=== PATIENT | female | born 1970 | race American Indian/Alaskan Native ===

== ENCOUNTER 2018-03-03 16:22 | Inpatient (IN) | payer BC ==
[2018-03-03 16:29] VITALS: BMI 26.6
--- NOTE | 2018-03-03 16:37 | ED PDOC ---
Arrival/HPI - General Chief Complaint: High Blood Pressure Time Seen by Provider: 03/03/18 16:23 Historian: Patient, EMS - History of Present Illness Time/Duration: Prior to Arrival Symptom Course: Unchanged Severity Level: Severe Activities at Onset: Rest Associated Symptoms (Text): 03/03/18 16:34 Patient reports that she was at work and became hot and diaphoretic and developed visual disturbance. She states that this happens when she becomes hypertensive. She went to a drug store and took her blood pressure and it was elevated at 260/130. The pharmacist called 911 and she was brought to the emergency department via ambulance. No headache dizziness or lightheadedness. No chest pain palpitations or dyspnea. No nausea or vomiting. There is a history of hypertension. Family/Social History - Physician Review Nursing Documentation Reviewed: Yes Family/Social History: Unknown Family HX Smoking Status: Light Smoker < 10 Cigarettes Daily Hx Alcohol Use: Yes Frequency of alcohol use: Few days per week Hx Substance Use: No Allergies/Home Meds Allergies/Adverse Reactions: Allergies No Known Allergies Allergy (Verified 03/03/18 16:29) Home Medications: Home Meds Medication Instructions Recorded Confirmed Atorvastatin [Lipitor] 10 mg PO DAILY 03/03/18 03/03/18 Valsartan [Diovan] 160 mg PO DAILY 03/03/18 03/03/18 Review of Systems - Physician Review All systems were reviewed & negative as marked: Yes - Review of Systems Constitutional: Normal. absent: Fatigue, Fevers Respiratory: Cough. absent: SOB, Sputum, Wheezing Cardiovascular: absent: Chest Pain, Palpitations, Syncope Gastrointestinal: absent: Abdominal Pain, Nausea, Vomiting Neurological: absent: Headache, Dizziness, Focal Weakness, Gait Changes Physical Exam Vital Signs Temp Pulse Resp BP Pulse Ox 03/03/18 18:01 61 16 185/95 H 100 03/03/18 16:50 65 237/128 H 03/03/18 16:32 97.6 F 64 18 237/128 H 100 Temperature: Afebrile Blood Pressure: Hypertensive Pulse: Regular Respiratory Rate: Normal Appearance: Positive for: Well-Appearing, Non-Toxic, Comfortable Pain Distress: None Mental Status: Positive for: Alert and Oriented X 3 - Systems Exam Head: Present: Atraumatic, Normocephalic Pupils: Present: PERRL Extroacular Muscles: Present: EOMI Conjunctiva: Present: Normal Mouth: Present: Moist Mucous Membranes Pharnyx: No: ERYTHEMA, EXUDATE, TONSILS ENLARGED Neck: Present: Normal Range of Motion Respiratory/Chest: Present: Clear to Auscultation, Good Air Exchange. No: Respiratory Distress, Accessory Muscle Use Cardiovascular: Present: Regular Rate and Rhythm, Normal S1, S2. No: Murmurs Abdomen: No: Tenderness, Distention, Peritoneal Signs, Rebound, Guarding Upper Extremity: Present: Normal Inspection. No: Cyanosis, Edema Lower Extremity: Present: Normal Inspection. No: Edema Neurological: Present: GCS=15, CN II-XII Intact, Speech Normal, Motor Func Grossly Intact, Normal Cerebellar Funct, Gait Normal Skin: Present: Warm, Dry, Normal Color. No: Rashes Psychiatric: Present: Alert, Oriented x 3, Normal Insight, Normal Concentration Medical Decision Making ED Course and Treatment: 03/03/18 16:52 EKG shows normal sinus rhythm rate approximately [address] or T-wave changes 03/03/18 18:17 Blood pressure is improved, although the patient still states she does not feel right. She will be kept on telemetry observation bed. - Lab Interpretations Lab Results: 03/03/18 16:45 03/03/18 16:45 Lab Results 03/03/18 16:45: Sodium 137, Potassium 3.5 L, Chloride 106, Carbon Dioxide 21, Anion Gap 13, BUN 19, Creatinine 0.6 L, Est GFR ( Amer) > 60, Est GFR ( Non-Af Amer) > 60, Random Glucose 89, Calcium 9.5, Total Bilirubin 0.2, AST 43 H , ALT 34, Alkaline Phosphatase 53, Lactate Dehydrogenase 627, Total Creatine Kinase 181, Troponin I < 0.01, Total Protein 7.8, Albumin 4.3, Globulin 3.5, Albumin/Globulin Ratio 1.2 03/03/18 16:45: WBC 12.2 H, RBC 4.10, Hgb 11.8 L, Hct 35.8 L, MCV 87.3, MCH 28.8 , MCHC 33.0, RDW 16.8 H, Plt Count 382, MPV 9.8, Gran % 55.8, Lymph % (Auto) 32.0, [place] % (Auto) 9.2 H, Eos % (Auto) 2.5, Baso % (Auto) 0.5, Gran # 6.82 H, Lymph # (Auto) 3.9 H, [place] # (Auto) 1.1 H, Eos # (Auto) 0.3, Baso # (Auto) 0.06 - RAD Interpretation Radiology Orders: 03/03/18 16:33 CHEST PORTABLE [RAD] Stat Chest 1 view shows no infiltrate effusion or cardiomegaly Clerk Checker: ED Physician - Medication Orders Current Medication Orders: Discontinued Medications Clonidine HCl (Catapres) 0.2 mg PO ONCE ONE Stop: 03/03/18 16:35 Last Admin: 03/03/18 16:50 Dose: 0.2 mg MAR Pulse and Blood Pressure Document 03/03/18 16:50 RR (Rec: 03/03/18 16:50 RR [id number]) Pulse Pulse Rate (60-90 beats/min) 65 Blood Pressure Blood Pressure (100/60-150/90 mm Hg) 237/128 Disposition/Present on Arrival - Present on Arrival Any Indicators Present on Arrival: No History of DVT/PE: No History of Uncontrolled Diabetes: No Urinary Catheter: No History of Decub. Ulcer: No - Disposition Have Diagnosis and Disposition been Completed?: Yes Diagnosis: Hypertension Disposition: HOSPITALIZED Disposition Time: 18:19 Patient Plan: Observation, Telemetry Condition: IMPROVED Forms: [employer] (Frisian)
--- NOTE | 2018-03-03 17:21 | RAD ---
HISTORY: HTN COMPARISON: No prior. FINDINGS: LUNGS: No active pulmonary disease. PLEURA: No significant pleural effusion identified, no pneumothorax apparent. CARDIOVASCULAR: Normal. OSSEOUS STRUCTURES: No significant abnormalities. VISUALIZED UPPER ABDOMEN: Normal. OTHER FINDINGS: None. IMPRESSION: No active disease.
[2018-03-03 17:24] LABS: BASO # 0.06 K/mm3 (0.0-2.0); BASO % 0.5 % (0.0-3.0); EOS # 0.3 (0.0-0.7); EOS % 2.5 % (1.5-5.0); GRAN # 6.82 (1.4-6.5); GRAN % 55.8 % (50.0-68.0); HEMOGLOBIN 11.8 g/dL (12.0-16.0); LYMPH # 3.9 (1.2-3.4); MEAN CELL VOLUME 87.3 fl (80.0-105.0); MEAN CORPUSCULAR HEMOGLOBIN 28.8 pg (25.0-35.0); MEAN PLATELET VOLUME 9.8 fl (7.0-11.0); MONO # 1.1 (0.1-0.6); MONO % 9.2 % (1.0-6.0); RBC 4.1 10^6/uL (3.5-6.1); RED CELL DISTRIBUTION WIDTH 16.8 % (11.5-14.5); WHITE BLOOD COUNT 12.2 10^3/ul (4.5-11.0)
[2018-03-03 17:29] LABS: ALB/GLOB RATIO 1.2 (1.1-1.8); ALBUMIN 4.3 g/dL (3.0-4.8); ALT/SGPT 34 U/L (7-56); AST/SGOT 43 U/L (14-36); BLOOD UREA NITROGEN 19 mg/dL (7-21); CALCIUM 9.5 mg/dL (8.4-10.5); GFR AFRICAN-AMERICAN > 60; GFR NON-AFRICAN AMERICAN > 60
[2018-03-03 17:39] LABS: TROPONIN I < 0.01 ng/mL
[2018-03-03] MEDS ORDERED: Potassium Chloride 20 mEq ER Tab PO ONE (19:37)
[2018-03-03] MEDS ORDERED: Pneumococcal 23-Valent Vaccine IM ONE (22:17)
[2018-03-04 07:39] LABS: HEMOGLOBIN 11.2 g/dL (12.0-16.0); MEAN CELL VOLUME 86.4 fl (80.0-105.0); MEAN CORPUSCULAR HEMOGLOBIN 28.8 pg (25.0-35.0); MEAN CORPUSCULAR HGB CONC 33.3 g/dl (31.0-37.0); MEAN PLATELET VOLUME 9.7 fl (7.0-11.0); RBC 3.89 10^6/uL (3.5-6.1); RED CELL DISTRIBUTION WIDTH 16.6 % (11.5-14.5); WHITE BLOOD COUNT 7.3 10^3/ul (4.5-11.0)
--- NOTE | 2018-03-04 07:52 | CP.PCM.HP ---
History of Present Illness - History of Present Illness History of Present Illness: CC: Uncontrolled HTN, and Diaphoretic History of Present Illness: A 47yo AAF was at work and became hot and diaphoretic and developed visual disturbance. She states that this happens when she becomes hypertensive. She went to a drug store and took her blood pressure and it was elevated at 260/ 130. The pharmacist called 911 and she was brought to the emergency department via ambulance. No headache dizziness or lightheadedness. No chest pain palpitations or dyspnea. No nausea or vomiting. There is a history of hypertension She was on Amlodipine and did not tolerate due to Palpitation and lightheadedness, and her data processing specialist changed the BP meds to Diovan 160mg which did not control the BP. She was given Clonidine 0.2mg in the ER and BP fairly controlled Today. Admits using Marijuana but denies use of Cocaine or Amphetamine. Present on Admission - Present on Admission Any Indicators Present on Admission: No Review of Systems - Review of Systems All systems: reviewed and no additional remarkable complaints except - Cardiovascular Cardiovascular: As Per HPI Past Patient History - Infectious Disease Hx of Infectious Diseases: None - Past Medical History & Family History Past Medical History?: Yes Pertinent Family History: HTN - Past Social History Smoking Status: Light Smoker < 10 Cigarettes Daily Alcohol: Social Drugs: Cannabis - CARDIAC Hx Hypercholesterolemia: (high lipids) Hx Hypertension: Yes (dx age 17) Other/Comment: pt started taking meds for htn about 5 yrs ago - PULMONARY Hx Respiratory Disorders: Yes (smoker 4 cigs a day) - NEUROLOGICAL Hx Neurological Disorder: No - HEENT Hx HEENT Problems: Yes Other/Comment: blurred vision started today now subsiding - RENAL Hx Chronic Kidney Disease: No - ENDOCRINE/METABOLIC Hx Endocrine Disorders: No - HEMATOLOGICAL/ONCOLOGICAL Hx Blood Disorders: No - INTEGUMENTARY Hx Dermatological Problems: No - MUSCULOSKELETAL/RHEUMATOLOGICAL Hx Falls: No - GENITOURINARY/GYNECOLOGICAL Other/Comment: 2005 left breast cysts to axilla and nipple benign bx, c section 1988 - PSYCHIATRIC Hx Psychophysiologic Disorder: No - SURGICAL HISTORY Hx Surgeries: Yes Other/Comment: left breast/axilla bx 2005, thyroid lesions bx 01/2018 neg no meds , c section - ANESTHESIA Hx Anesthesia: No Hx Anesthesia Reactions: No Hx Malignant Hyperthermia: No Meds Allergies/Adverse Reactions: Allergies Allergy/AdvReac Type Severity Reaction Status Date / Time No Known Allergies Allergy Verified 03/03/18 16:29 Physical Exam - Constitutional Appears: Well, No Acute Distress - Head Exam Head Exam: ATRAUMATIC, NORMAL INSPECTION, NORMOCEPHALIC - Eye Exam Eye Exam: EOMI, Normal appearance, PERRL Pupil Exam: NORMAL ACCOMODATION, PERRL - ENT Exam ENT Exam: Mucous Membranes Moist, Normal Exam - Neck Exam Neck exam: Positive for: Full Rom, Normal Inspection - Respiratory Exam Respiratory Exam: Clear to Auscultation Bilateral, NORMAL BREATHING PATTERN - Cardiovascular Exam Cardiovascular Exam: REGULAR RHYTHM, +S1, +S2 - GI/Abdominal Exam GI & Abdominal Exam: Normal Bowel Sounds, Soft. absent: Tenderness - Rectal Exam Rectal Exam: NORMAL INSPECTION - Extremities Exam Extremities exam: Positive for: full ROM, normal inspection - Back Exam Back exam: FULL ROM, NORMAL INSPECTION - Neurological Exam Neurological exam: Alert, CN II-XII Intact, Normal Gait, Oriented x3, Reflexes Normal - Psychiatric Exam Psychiatric exam: Normal Affect, Normal Mood - Skin Skin Exam: Dry, Intact, Normal Color, Warm Results - Vital Signs Recent Vital Signs: Last Vital Signs Temp 97.7 F 03/04/18 05:55 Pulse 66 03/04/18 05:55 Resp 20 03/04/18 05:55 BP 163/83 H 03/04/18 05:55 Pulse Ox 97 03/04/18 05:55 - Labs Result Diagrams: 03/04/18 07:31 03/04/18 07:31 Labs: Laboratory Results - last 24 hr 03/04/18 07:31 WBC 7.3 D RBC 3.89 Hgb 11.2 L Hct 33.6 L MCV 86.4 MCH 28.8 MCHC 33.3 RDW 16.6 H Plt Count 353 MPV 9.7 - EKG Data EKG Interpreted by: Myself EKG shows normal: Sinus rhythm, [place], Intervals, QRS complexes Rate: Normal - Imaging and Cardiology Chest x-ray Status: Report reviewed by me Additional comment: No ACtive Disease Assessment & Plan (1) Hypertensive urgency Assessment and Plan: Vs Emergency; Headache and Visual Changes D/c Diovan Clonidine 0.2mg BID Neuro check Q4hrs CT Head W/O Contrast Monitor BP Echocardiogram Status: Acute Priority: High (2) Smoker Assessment and Plan: Counselled in Detail about [place] smoking Status: Chronic Priority: Medium (3) Drug use Status: Chronic Priority: Medium
[2018-03-04 07:59] LABS: BLOOD UREA NITROGEN 14 mg/dL (7-21); CALCIUM 9.1 mg/dL (8.4-10.5); GFR AFRICAN-AMERICAN > 60; GFR NON-AFRICAN AMERICAN > 60
[2018-03-04 08:08] LABS: TROPONIN I < 0.01 ng/mL
--- NOTE | 2018-03-04 09:11 | CT ---
PROCEDURE: CT HEAD WITHOUT CONTRAST. HISTORY: Hypertensive Urgency, Blurry Vision COMPARISON: None available. TECHNIQUE: Axial computed tomography images were obtained through the head/brain without intravenous contrast. Radiation dose: Total exam DLP = 876 mGy-cm. This CT exam was performed using one or more of the following dose reduction techniques: Automated exposure control, adjustment of the mA and/or kV according to patient size, and/or use of iterative reconstruction technique. FINDINGS: HEMORRHAGE: No intracranial hemorrhage. BRAIN: No mass effect or edema. No atrophy or chronic microvascular ischemic changes. VENTRICLES: Unremarkable. No hydrocephalus. CALVARIUM: Unremarkable. PARANASAL SINUSES: Unremarkable as visualized. No significant inflammatory changes. MASTOID AIR CELLS: Unremarkable as visualized. No inflammatory changes. OTHER FINDINGS: None. IMPRESSION: Normal CT of the Head.
--- NOTE | 2018-03-04 14:25 | CARD ---
APPROVED REPORT EKG Measurement Heart [id number] <Conclusion> Normal sinus rhythm Normal ECG
[2018-03-05] MEDS ORDERED: Potassium Chloride 20 mEq/15 ml LIQ UD PO STA (13:51)
--- NOTE | 2018-03-05 22:51 | CP.PCM.PN ---
Subjective - Date & Time of Evaluation Date of Evaluation: 03/05/18 Time of Evaluation: 15:15 Objective - Vital Signs/Intake and Output Vital Signs (last 24 hours): Temp Pulse Resp BP Pulse Ox 97.5 F L 56 L 20 137/72 100 03/05/18 17:14 03/05/18 17:14 03/05/18 17:14 03/05/18 18:41 03/05/18 06:00 Intake and Output: 03/05/18 03/06/18 18:59 06:59 Intake Total 600 Balance 600 - Medications Medications: Current Medications Acetaminophen (Tylenol 325mg Tab) 650 mg PO Q6H PRN PRN Reason: Pain, moderate (4-7) Last Admin: 03/05/18 22:18 Dose: 650 mg Atorvastatin Calcium (Lipitor) 10 mg PO DIN ABHI Last Admin: 03/05/18 17:02 Dose: 10 mg Hydralazine HCl (Apresoline) 10 mg IVP Q6 PRN PRN Reason: hypertension Last Admin: 03/04/18 08:52 Dose: 10 mg Hydralazine HCl (Apresoline) 50 mg PO TID [facility] Last Admin: 03/05/18 18:41 Dose: 50 mg Assessment and Plan (1) Hypertensive urgency Status: Acute (2) Smoker Status: Chronic (3) Drug use Status: Chronic
--- NOTE | 2018-03-06 09:59 | CARD ---
APPROVED REPORT EXAM: Two-dimensional and M-mode echocardiogram with Doppler and color Doppler. Other Information Quality : GoodRhythm : INDICATION Hypertension/HCVD 2D DIMENSIONS Left Atrium (2D)4.4 (1.6-4.0cm)IVSd1.4 (0.7-1.1cm) LVDd4.8 (3.9-5.9cm)PWd1.4 (0.7-1.1cm) LVDs2.9 (2.5-4.0cm)FS (%) 38.8 % LVEF (%)69.0 (>50%) M-Mode DIMENSIONS Aortic Root3.00 (2.2-3.7cm)Aortic Cusp Exc.1.80 (1.5-2.0cm) Aortic Valve AoV Peak Rkiyrrho075.0cm/s Mitral Valve MV E Tufngyea27.2cm/sMV A Izicblii11.0cm/sE/A ratio1.2 TDI E/Lateral E'0.0E/Medial E'0.0 Tricuspid Valve TR Peak [id number]/sRAP [id number] Peak Gr.19mmHg [id number] LEFT VENTRICLE The left ventricle is normal size. There is moderate concentric left ventricular hypertrophy. The left ventricular function is normal. The left ventricular ejection fraction is within the normal range. There is normal LV segmental wall motion. RIGHT VENTRICLE The right ventricle is normal size. ATRIA The left atrium is mildly dilated. The right atrium size is normal. The interatrial septum is intact with no evidence for an atrial septal defect. AORTIC VALVE The aortic valve is normal in structure. There is mild aortic regurgitation. MITRAL VALVE The mitral valve is normal in structure. Mitral regurgitation is trace. TRICUSPID VALVE The tricuspid valve is normal in structure. There is trace tricuspid regurgitation. PULMONIC VALVE The pulmonary valve is normal in structure. GREAT VESSELS The aortic root is normal in size. PERICARDIAL EFFUSION There is no pericardial effusion. <Conclusion> The left ventricle is normal size. There is moderate concentric left ventricular hypertrophy. The left ventricular function is normal. The left ventricular ejection fraction is within the normal range. There is mild aortic regurgitation. Mitral regurgitation is trace. There is trace tricuspid regurgitation.
[2018-03-06 14:10] LABS: BASO # 0.01 K/mm3 (0.0-2.0); BASO % 0.1 % (0.0-3.0); EOS # 0.2 (0.0-0.7); EOS % 1.7 % (1.5-5.0); GRAN # 5.63 (1.4-6.5); GRAN % 60.9 % (50.0-68.0); HEMOGLOBIN 12.3 g/dL (12.0-16.0); LYMPH # 2.6 (1.2-3.4); MEAN CELL VOLUME 86.4 fl (80.0-105.0); MEAN CORPUSCULAR HEMOGLOBIN 29.3 pg (25.0-35.0); MEAN CORPUSCULAR HGB CONC 33.9 g/dl (31.0-37.0); MEAN PLATELET VOLUME 9.3 fl (7.0-11.0); MONO # 0.9 (0.1-0.6); MONO % 9.3 % (1.0-6.0); RBC 4.2 10^6/uL (3.5-6.1); RED CELL DISTRIBUTION WIDTH 16.5 % (11.5-14.5); WHITE BLOOD COUNT 9.3 10^3/ul (4.5-11.0)
[2018-03-06 14:21] LABS: ALB/GLOB RATIO 1.2 (1.1-1.8); ALT/SGPT 25 U/L (7-56); AST/SGOT 24 U/L (14-36); BLOOD UREA NITROGEN 13 mg/dL (7-21); CALCIUM 9.7 mg/dL (8.4-10.5); GFR AFRICAN-AMERICAN > 60; GFR NON-AFRICAN AMERICAN > 60
--- NOTE | 2018-03-06 18:54 | CP.PCM.PN ---
Subjective - Date & Time of Evaluation Date of Evaluation: 03/06/18 Time of Evaluation: 13:35 Objective - Vital Signs/Intake and Output Vital Signs (last 24 hours): Temp Pulse Resp BP Pulse Ox 98.1 F 69 18 170/80 H 100 03/06/18 14:00 03/06/18 14:00 03/06/18 14:00 03/06/18 16:03 03/06/18 14:00 - Medications Medications: Current Medications Acetaminophen (Tylenol 325mg Tab) 650 mg PO Q6H PRN PRN Reason: Pain, moderate (4-7) Last Admin: 03/05/18 22:18 Dose: 650 mg Atorvastatin Calcium (Lipitor) 10 mg PO DIN ABHI Last Admin: 03/06/18 16:58 Dose: 10 mg Hydralazine HCl (Apresoline) 10 mg IVP Q6 PRN PRN Reason: hypertension Last Admin: 03/06/18 06:41 Dose: 10 mg Hydralazine HCl (Apresoline) 100 mg PO TID ABHI Last Admin: 03/06/18 16:59 Dose: 100 mg - Labs Labs: 03/06/18 14:00 03/06/18 14:00 Assessment and Plan (1) Hypertensive urgency Status: Acute (2) Smoker Status: Chronic (3) Drug use Status: Chronic
[2018-03-07 08:27] VITALS: RESP 20
--- NOTE | 2018-03-07 22:13 | CP.PCM.PN ---
Subjective - Date & Time of Evaluation Date of Evaluation: 03/07/18 Time of Evaluation: 15:15 Objective - Vital Signs/Intake and Output Vital Signs (last 24 hours): Temp Pulse Resp BP Pulse Ox 97.6 F 76 20 180/92 H 98 03/07/18 22:00 03/07/18 22:00 03/07/18 22:00 03/07/18 22:00 03/07/18 22:00 Intake and Output: 03/07/18 03/08/18 18:59 06:59 Intake Total 1200 Balance 1200 - Medications Medications: Current Medications Acetaminophen (Tylenol 325mg Tab) 650 mg PO Q6H PRN PRN Reason: Pain, moderate (4-7) Last Admin: 03/07/18 20:44 Dose: 650 mg Atorvastatin Calcium (Lipitor) 10 mg PO DIN [facility] Last Admin: 03/07/18 18:09 Dose: 10 mg Carvedilol (Coreg) 6.25 mg PO BID [facility] Last Admin: 03/07/18 18:09 Dose: 6.25 mg Hydralazine HCl (Apresoline) 10 mg IVP Q6 PRN PRN Reason: hypertension Last Admin: 03/06/18 06:41 Dose: 10 mg Hydralazine HCl (Apresoline) 100 mg PO TID [facility] Last Admin: 03/07/18 18:08 Dose: 100 mg - Labs Labs: 03/06/18 14:00 03/06/18 14:00 Assessment and Plan (1) Hypertensive urgency Status: Acute (2) Smoker Status: Chronic (3) Drug use Status: Chronic
[2018-03-08 07:56] VITALS: TEMP 97.7; O2SAT 99
[2018-03-08] MEDS ORDERED: Metoprolol Succinate 25 mg XL Tab PO SCH (08:00)
[2018-03-08 08:01] LABS: BARBITURATES, UR NEGATIVE (NEGATIVE); BENZODIAZEPINES, UR NEGATIVE (NEGATIVE); OPIATES, UR NEGATIVE (NEGATIVE); PHENCYCLIDINE, UR NEGATIVE (NEGATIVE)
[2018-03-08 09:45] VITALS: BP 157/95; PULSE 82
--- NOTE | 2018-03-08 23:48 | CP.PCM.DIS ---
Provider - Provider Date of Admission: 03/05/18 14:20 Attending physician: Tommy Thompson MD Primary care physician: Yevgeniy Bruce DO Time Spent in preparation of Discharge (in minutes): 30 Diagnosis - Discharge Diagnosis (1) Hypertensive urgency Status: Acute Priority: High (2) Smoker Status: Chronic Priority: Medium (3) Drug use Status: Chronic Priority: Medium Hospital Course - Lab Results Lab Results: Most Recent Lab Values WBC 9.3 10^3/ul (4.5-11.0) D 03/06/18 14:00 RBC 4.20 10^6/uL (3.5-6.1) 03/06/18 14:00 Hgb 12.3 g/dL (12.0-16.0) 03/06/18 14:00 Hct 36.3 % (36.0-48.0) 03/06/18 14:00 MCV 86.4 fl (80.0-105.0) 03/06/18 14:00 MCH 29.3 pg (25.0-35.0) 03/06/18 14:00 MCHC 33.9 g/dl (31.0-37.0) 03/06/18 14:00 RDW 16.5 % (11.5-14.5) H 03/06/18 14:00 Plt Count 321 10^3/uL (120.0-450.0) 03/06/18 14:00 MPV 9.3 fl (7.0-11.0) 03/06/18 14:00 Gran % 60.9 % (50.0-68.0) 03/06/18 14:00 Lymph % (Auto) 28.0 % (22.0-35.0) 03/06/18 14:00 [place] % (Auto) 9.3 % (1.0-6.0) H 03/06/18 14:00 Eos % (Auto) 1.7 % (1.5-5.0) 03/06/18 14:00 Baso % (Auto) 0.1 % (0.0-3.0) 03/06/18 14:00 Gran # 5.63 (1.4-6.5) 03/06/18 14:00 Lymph # (Auto) 2.6 (1.2-3.4) 03/06/18 14:00 [place] # (Auto) 0.9 (0.1-0.6) H 03/06/18 14:00 Eos # (Auto) 0.2 (0.0-0.7) 03/06/18 14:00 Baso # (Auto) 0.01 K/mm3 (0.0-2.0) 03/06/18 14:00 Sodium 138 mmol/L (132-148) 03/06/18 14:00 Potassium 4.5 mmol/L (3.6-5.0) 03/06/18 14:00 Chloride 105 mmol/L (98-107) 03/06/18 14:00 Carbon Dioxide 26 mmol/L (21-33) 03/06/18 14:00 Anion Gap 13 (10-20) 03/06/18 14:00 BUN 13 mg/dL (7-21) 03/06/18 14:00 Creatinine 0.7 mg/dl (0.7-1.2) 03/06/18 14:00 Est GFR ( Amer) > 60 03/06/18 14:00 Est GFR (Non-Af Amer) > 60 03/06/18 14:00 Random Glucose 95 mg/dL (70-110) 03/06/18 14:00 Calcium 9.7 mg/dL (8.4-10.5) 03/06/18 14:00 Total Bilirubin 0.4 mg/dL (0.2-1.3) 03/06/18 14:00 AST 24 U/L (14-36) 03/06/18 14:00 ALT 25 U/L (7-56) 03/06/18 14:00 Alkaline Phosphatase 45 U/L (38-126) 03/06/18 14:00 Lactate Dehydrogenase 627 U/L (333-699) 03/03/18 16:45 Total Creatine Kinase 181 U/L (35-230) 03/03/18 16:45 Troponin I < 0.01 ng/mL 03/04/18 07:31 Total Protein 7.5 g/dL (5.8-8.3) 03/06/18 14:00 Albumin 4.0 g/dL (3.0-4.8) 03/06/18 14:00 Globulin 3.5 gm/dL 03/06/18 14:00 Albumin/Globulin Ratio 1.2 (1.1-1.8) 03/06/18 14:00 Free T4 0.96 ng/dL (0.78-2.19) 03/06/18 14:00 Free T3 pg/mL 3.69 pg/mL (2.77-5.27) 03/06/18 14:00 TSH 3rd Generation 0.37 mIU/mL (0.46-4.68) L 03/05/18 16:00 Urine Opiates Screen Negative (NEGATIVE) 03/08/18 00:30 Urine Methadone Screen Negative (NEGATIVE) 03/08/18 00:30 Ur Barbiturates Screen Negative (NEGATIVE) 03/08/18 00:30 Ur Phencyclidine Scrn Negative (NEGATIVE) 03/08/18 00:30 Ur Amphetamines Screen Negative (NEGATIVE) 03/08/18 00:30 U Benzodiazepines Scrn Negative (NEGATIVE) 03/08/18 00:30 U Oth Cocaine Metabols Negative (NEGATIVE) 03/08/18 00:30 U Cannabinoids Screen Positive (NEGATIVE) H 03/08/18 00:30 Discharge Exam - Head Exam Head Exam: ATRAUMATIC, NORMAL INSPECTION, NORMOCEPHALIC Discharge Plan - Discharge Medications Prescriptions: hydrALAZINE [Apresoline] 100 mg PO TID #90 tab Carvedilol [Coreg] 6.25 mg PO BID #60 tablet - Follow Up Plan Condition: IMPROVED Disposition: HOME/ ROUTINE Instructions: High Blood Pressure (DC), Controlling Your Blood Pressure Through Lifestyle, High Blood Pressure Emergencies, Medicines for High Blood Pressure Additional Instructions: Monitor BP monitor increased symptoms head ache, blurred vision, increased sweating Continue taking medications as directed from MD come back to ER if your symptoms worsen. Follow up with travel registered nurse pacu. Apply ice packs for headaches if they help.
== END 2018-03-08 14:31 | disposition home or self-care (01) | DRG 305 ==
LOC: ED 16:22 → ERH 18:16 → MERGE 18:16 → ERH 18:31 → 2RNO 18:55 → OBSVTOIN 03-05 14:20 → 5RSO 03-05 18:30
PROVIDERS: ADMIT Internal Medicine; ATTEND Internal Medicine
DX: I16.0 Hypertensive urgency (principal); I10 Essential (primary) hypertension; E78.00 Pure hypercholesterolemia, unspecified; F12.90 Cannabis use, unspecified, uncomplicated; F17.210 Nicotine dependence, cigarettes, uncomplicated; R40.2412 Glasgow coma scale score 13-15, at arrival to emergency department